=== PATIENT | male | born 1975 | race Caucasian/White ===

== ENCOUNTER 2019-11-02 01:51 | Emergency (ER) | payer OTHER, BC, SELFPAY ==
[2019-11-02 01:54] VITALS: BP 125/86; PULSE 64; RESP 18; TEMP 35.6; O2SAT 99
--- NOTE | 2019-11-02 01:55 | ED.UPPEXIN ---
HPI - Extremity Injury (Upper) General Chief Complaint: Extremity Injury, Upper Stated Complaint: right hand injury Time Seen by Provider: 11/02/19 01:52 Source: patient Mode of arrival: ambulatory Limitations: no limitations History of Present Illness HPI narrative: Patient is a 44-year-old male who presents for evaluation of wound to his right hand. Patient reports that he was at work this evening, when a pallet a patient was unloading cut him on his right hand with an exposed nail. Patient reports no pain, no numbness. No difficulty with movement or weakness. Patient states he was sent here by work for a medical evaluation and tetanus update. Patient denies any other injury. Related Data Home Medications Medication Instructions Recorded Confirmed No Home Medications 11/02/19 11/02/19 Allergies Allergy/AdvReac Type Severity Reaction Status Date / Time No Known Allergies Allergy Unknown Unverified 11/02/19 01:56 Review of Systems Review of Systems: Narrative: CONSTITUTIONAL: Denies fever CARDIOVASCULAR: Denies chest pain RESPIRATORY: Denies cough or dyspnea. GASTROINTESTINAL: Denies abdominal pain. MUSCULOSKELETAL: Denies hand pain NEUROLOGIC: Denies weakness. [facility] Past Medical History Medical History (Updated 11/02/19 @ 02:09 by Raina Loaiza MD) No pertinent past medical history Surgical History Surgical History (Updated 11/02/19 @ 02:05 by Raina Loaiza MD) No pertinent past surgical history Social History Social History (Updated 11/02/19 @ 02:06 by Raina Loaiza MD) Smoking status: Never smoker Substance use: never Living arrangements: with family Gender identity (if verbalized by the patient): Male Exam Narrative: Exam Narrative: GENERAL: Awake, alert, conversant HEAD: Normocephalic, atraumatic. CHEST: No respiratory distress, breathing even and non labored HEART: Regular rate, sinus rhythm ABDOMEN:Non distended, non tender EXTREMITIES: Normal range of motion. No edema. SKIN: Warm, dry, no rash. 1 cm linear, superficial laceration to the dorsal aspect of the right hand. No active bleeding. No foreign body. No gaping. Radial pulse 2+. Intact sensation median, ulnar, radial nerve distribution. [employer] strength 5 out of 5. Capillary refill less than 3 seconds. NEURO:No focal deficits. Alert and oriented x3 MDM - Extremity Injury (Upper) MDM Narrative Medical decision making narrative: Patient presented for evaluation of wound to the dorsal aspect of his right hand. Patient denies numbness, weakness or pain. There is no active bleeding or evidence of foreign body when the wound was evaluated. Patient has irrigated the wound and it is clean appearing. Wound does not require any debridement. Patient does not have any bony pain that would suggest osseous injury. Patient is neurovascularly intact. Patient's tetanus was updated, this wound is superficial does not require any sutures or adhesive. Patient was advised to keep the wound clean, dry, to apply Vaseline, wound will likely heal in the next 5 to 7 days. Patient was then discharged home. Differential Diagnosis Differential diagnosis: Likely other (Laceration, abrasion, foreign body) Discharge Plan Discharge Clinical Impression: Hand laceration Qualifiers: Encounter type: initial encounter Foreign body presence: without foreign body Laterality: right Qualified Code(s): S61.411A - Laceration without foreign body of right hand, initial encounter Patient Disposition: Home, Self-Care Condition: Stable Instructions: Laceration (ED) Additional Instructions: Please keep your wound clean and dry. Please do not soak it in any water. You may wash with antibacterial soap and pat it to dry. Please do not scrub the wound. Signs of infection including redness, purulent drainage from the site, worsening pain. If you feel any of these are present, please return to the emergency department for reassessment.
[2019-11-02 01:57] VITALS: BP 141/79; PULSE 80; RESP 19; TEMP 36.8; O2SAT 100
[2019-11-02 02:11] VITALS: BP 133/67; PULSE 80; RESP 19; TEMP 36.8; O2SAT 100
[2019-11-02] MEDS: TETANUS,DIPHTHERIA,AC PERTUSSIS ADULT (0.5 ML) BOOSTRIX IM (02:11)
== END 2019-11-02 02:12 | disposition home or self-care (01) ==
PROVIDERS: Emergency Provider Emergency Medicine
DX: S61.411A Laceration without foreign body of right hand, initial encounter (principal); W45.0XXA Nail entering through skin, initial encounter; Z23 Encounter for immunization
CPT/HCPCS: 90471; 90715; 99282

== ENCOUNTER 2020-12-02 09:58 | Outpatient (CLI) | payer BC, SELFPAY ==
--- NOTE | 2020-12-02 | EST_ITS ---
Patient Info Name: Ulisses Benítez Age: 45 years : 1975 Gender: Male Ht: 72 in Wt: 245 lbs BSA: 2.41 m2 Heart Rhythm: Sinus Rhythm Exam Date: 12/02/2020 10:54 AM Exam Location: [facility] Patient Status: Outpatient Admit Date: 12/02/2020 Staff Ordering Physician: Johnson, Dipti Davila NP Attending Provider: Johnson, Dipti Davila NP Exercise Technologist: Kirstin Maddox RDCS Exercise Physician: Jet Joyce MD Exam Type: CA stress test treadmill Study Info Indications R07.89 - Other chest pain A treadmill exercise stress test was performed. Summary 1. Maximal treadmill stress EKG study achieving 101% of age predicted maximum heart rate and 12.1 METS at peak exercise. 2. Good exercise capacity for age. 3. Normal heart rate and blood pressure response to exercise. 4. No arrhythmias were observed during the examination. 5. No chest discomfort with stress test. 6. Exercise capacity very good at >10 METS[address] 7[address] No [address] ST/T wave changes with exercise. 8. Bailey treadmill score of +11 indicating low risk for adverse cardiovascular events over the next 5 years. Protocol: [facility] ECG Details Stage: REST Duration (min): 11 min : 28 sec Speed (mph): 0.0 Grade (%): 0 HR (bpm): 68 SBP (mmHg): 114 DBP (mmHg): 91 METS: --- Stage: REST Duration (min): 12 min : 26 sec Speed (mph): 0.0 Grade (%): 0 HR (bpm): 65 SBP (mmHg): 114 DBP (mmHg): 91 METS: --- Stage: STAGE 1 Duration (min): 1 min : 0 sec Speed (mph): 1.7 Grade (%): 10 HR (bpm): 97 SBP (mmHg): 114 DBP (mmHg): 91 METS: --- Stage: STAGE 1 Duration (min): 2 min : 0 sec Speed (mph): 1.7 Grade (%): 10 HR (bpm): 103 SBP (mmHg): 114 DBP (mmHg): 91 METS: --- Stage: STAGE 1 Duration (min): 3 min : 0 sec Speed (mph): 1.7 Grade (%): 10 HR (bpm): 105 SBP (mmHg): 136 DBP (mmHg): 76 METS: --- Stage: STAGE 2 Duration (min): 1 min : 0 sec Speed (mph): 2.5 Grade (%): 12 HR (bpm): 114 SBP (mmHg): 136 DBP (mmHg): 76 METS: --- Stage: STAGE 2 Duration (min): 2 min : 0 sec Speed (mph): 2.5 Grade (%): 12 HR (bpm): 120 SBP (mmHg): 164 DBP (mmHg): 75 METS: --- Stage: STAGE 2 Duration (min): 3 min : 0 sec Speed (mph): 2.5 Grade (%): 12 HR (bpm): 122 SBP (mmHg): 164 DBP (mmHg): 75 METS: --- Stage: STAGE 3 Duration (min): 1 min : 0 sec Speed (mph): 3.4 Grade (%): 14 HR (bpm): 132 SBP (mmHg): 164 DBP (mmHg): 75 METS: --- Stage: STAGE 3 Duration (min): 2 min : 0 sec Speed (mph): 3.4 Grade (%): 14 HR (bpm): 142 SBP (mmHg): 136 DBP (mmHg): 74 METS: --- Stage: STAGE 3 Duration (min): 3 min : 0 sec Speed (mph): 3.4 Grade (%): 14 HR (bpm): 146 SBP (mmHg): 138 DBP (mmHg): 77 METS: --- Stage: STAGE 4 Duration (min): 1 min : 0 sec
== END 2020-12-02 09:59 | disposition home or self-care (01) ==
LOC: ANHCARD 09:59
PROVIDERS: Visit Provider Nurse Practitioner Family
DX: R07.89 Other chest pain (principal)
CPT/HCPCS: 93017

== ENCOUNTER 2022-09-07 09:15 | Outpatient (CLI) | payer BC, SELFPAY ==
--- NOTE | ~2022-09-07 | CT_ITS ---
EXAMINATION: CTA chest DATE: 09/07/2022 09:53 INDICATION: Chest pain TECHNIQUE: Computed tomographic angiography (CTA) of the chest was performed with 100 mL Omnipque-350 intravenous contrast. Maximum intensity projection 3D-reconstructions of the aorta and other arterie s were constructed by the technologist on a separate workstation. The dose-length product (DLP) was 9 57.87 mGy-cm. Automated exposure control and iterative reconstruction technique were employed. COMPARISON: None. FINDINGS: There is no aneurysm or dissection of the thoracic aorta. No pulmonary embolus is identifie d. The lungs are free of acute opacities. No pleural effusion or pneumothorax. No pathologically enla rged thoracic lymph nodes are identified. The heart size is normal. The visualized osseous structures are unremarkable. IMPRESSION: 1. No aneurysm or dissection of thoracic aorta. Reviewed, dictated and finalized at location B.
[2022-09-07 11:11] LABS: Basophils Absolute Auto 0.1 K/mm3 (0.0-0.1); Basophils Percent Auto 0.8 % (0.2-1.2); Eosinophils Absolute Auto 0.2 K/mm3 (0-0.3); Hematocrit 47.9 % (42.0-52.0); Immature Granulocyte Absolute 0.03 K/mm3 (0.00-0.031); Immature Granulocyte Percent A 0.3 % (0-0.5); Lymphocytes Absolute Auto 2.87 K/mm3 (0.9-3.2); Lymphocytes Percent Auto 29.8 % (18.3-44.2); Mean Corpuscular HGB Conc 33.4 g/dl (32-36); Mean Corpuscular Hemoglobin 28.5 pg (26-34); Mean Corpuscular Volume 85.4 fl (80-100); Mean Platelet Volume 10.1 fl (7.4-10.4); Monocytes Absolute Auto 0.7 K/mm3 (0.1-0.6); Neutrophils Absolute Auto 5.8 K/mm3 (1.3-6.7); Neutrophils Percent Auto 60.1 % (45.5-73.1); Platelet Count Result 294 k/mm3 (150-375); Red Blood Count 5.61 M/mm3 (4.6-6.20); Red Cell Distribution Width 12.9 % (11.5-14.5); White Blood Count 9.6 K/mm3 (4.5-10.0)
[2022-09-07 11:12] LABS: Appearance Urine Clear (Clear); Bilirubin Urine Negative (Negative); Blood Urine Negative (Negative); Color Urine Yellow (Yellow); Glucose Urine UA Negative (Negative); Ketones Urine Negative (Negative); Leukocyte Esterase Ur Negative LEU/UL (Negative); Nitrate Urine Negative (Negative); Protein Urine Negative (Negative); Urobilinogen Urine 0.2 mg/dL (<2.0)
[2022-09-07 11:17] LABS: Add Urine Microscopic? NO; Specific Grav Ur 1.082 (1.001-1.035)
[2022-09-07 11:29] LABS: Alanine Aminotransferase 42 U/L (6-50); Albumin Level 4.4 g/dL (3.5-5.1); Alkaline Phosphatase 80 U/L (38-126); Anion Gap 4 mmol/L (8-16); Aspartate Amino Transferase 33 U/L (17-59); Bilirubin,Total 1.1 mg/dL (0.2-1.3); Blood Urea Nitrogen 14 mg/dL (9-20); Calcium 8.7 mg/dL (8.4-10.2); Carbon Dioxide 32 mmol/L (22-30); Chloride 101 mmol/L (98-107); Cholesterol 178 mg/dL (0-200); Estimated Glomerular Filt Rate > 60; Glucose 91 mg/dL (65-110); HDL Direct 32 mg/dL; Potassium 4.1 mmol/L (3.4-5.0); Sodium 137 mmol/L (137-145); Triglycerides 161 mg/dL (<150)
[2022-09-07 11:40] LABS: LDL Cholesterol Direct 115 mg/dL
[2022-09-07 12:00] LABS: Prostate Specific Antigen 0.6 ng/mL (< OR = 4.0); Thyroid Stimulating Hormone 0.776 uIU/mL (0.465-4.680)
[2022-09-07 12:14] LABS: Free T4 Free Thyroxine 1.15 ng/mL (0.78-2.19); Vitamin D 25 Hydroxy 39.5 ng/mL
[2022-09-11 11:34] LABS: Testosterone Total 417 ng/dL (250-1100)
== END 2022-09-07 09:16 | disposition home or self-care (01) ==
PROVIDERS: PCP Internal Medicine; Visit Provider Internal Medicine
DX: Z00.00 Encounter for general adult medical examination without abnormal findings (principal); Z68.32 Body mass index [BMI] 32.0-32.9, adult; R07.89 Other chest pain; M25.522 Pain in left elbow; M54.2 Cervicalgia; J06.9 Acute upper respiratory infection, unspecified; M79.602 Pain in left arm; M54.12 Radiculopathy, cervical region
CPT/HCPCS: 36415; 71275; 80053; 80061; 81003; 82306; 84153; 84403; 84439; 84443; 85025; G0103; Q9967